=== PATIENT | male | born 2000 | race African-American/Black ===

== ENCOUNTER 2025-08-26 07:36 | Emergency (ER) | payer MEDICAID ==
[~2025-08-26] VITALS: Ht 180.3 cm; Wt 64.0 kg
[2025-08-26 07:43] VITALS: TEMP 36.9; O2SAT 99
[2025-08-26] MEDS: IBUPROFEN 600MG TABLET PO ONE (08:34)
[2025-08-26 09:05] VITALS: BP 132/87; PULSE 74; RESP 12; O2SAT 100
[2025-08-26 09:53] LABS: INFLUENZA TYPE A Presumptive Negative (Pres. Neg.); INFLUENZA TYPE B Presumptive Negative (Pres. Neg.)
== END 2025-08-26 09:10 | disposition home or self-care (01) ==
LOC: ER 07:36
DX: B34.9 Viral infection, unspecified (principal); R05.9 Cough, unspecified; R09.81 Nasal congestion; Z20.822 Contact with and (suspected) exposure to COVID-19
CPT/HCPCS: 87070; 87426; 87430; 87804; 99283